=== PATIENT | female | born 1960 | race Caucasian/White ===

== ENCOUNTER 2019-06-23 13:21 | Observation (INO) | payer SELFPAY ==
[~2019-06-23] VITALS: Ht 165.1 cm; Wt 97.5 kg
[~2019-06-23 13:21] MED LIST: ACIPHEX20 MG PO; DYAZIDE 37.5-21 EACH PO; NAPROXEN500 MG PO; VICODIN
--- OUTSIDE RECORDS SUMMARY | 2019-06-23 13:24 | XMS REPORT ---
Author Author [facility] Address Unknown Phone Unavailable Care Team Providers Care [place] [employer] Name Role Phone Unavailable Unavailable Payers Payer Name Policy Type Policy Number Effective Date Expiration Date Problems This patient has no known problems. Allergies, Adverse Reactions, Alerts Allergy Name Allergy Type Status Severity Reaction(s) Onset Date Inactive Date Treating Clinician Comments No Known Allergies DA Active U 2014-02-10 00:00:00 Medications This patient has no known medications. Results Test Description Test Time Test Comments Text Results Atomic Results Result Comments - CT NECK W/CONTRAST 2018-08-18 18:28:00 Name: NICK LOWERY [facility] : 1960 Age/S: 58 / F [address] [place] [address] Unit #: [id number] Loc: [place] [address] Phys: Shruthi Howell MD Acct: [id number] Dis Date: Status: REG CLI PHONE #: [phone] Exam Date: 08/18/2018 174 FAX #: [phone] Reason: THYROID MASS AND POSTERIOR NECK MASS EXAMS: CPT CODE: [id number] CT NECK W/CONTRAST 23130 PROCEDURE: CT NECK WITH CONTRAST INDICATION: THYROID MASS AND POSTERIOR NECK MASS COMPARISON: Thyroid ultrasound 05/02/2018 from [facility] TECHNIQUE: Helical imaging performed skull base through the thoracic inlet following intravenous contrast administration. Multiplanar reconstructions are available in soft tissue algorithm. IV CONTRAST: [address] imaging performed at this location utilizes radiation dose optimization techniques which include one or more of the following: -Automated exposure control -Adjustment of the mA and/or kV according to patient size - Use of iterative reconstruction technique CT Radiation Dose DLP 147.80 mGy-cm FINDINGS: Slight heterogeneous attenuation thyroid with asymmetric enlargement right lobe corresponding to findings at ultrasound. No cervical or superior mediastinal adenopathy by size criteria. The visualized aerodigestive tract is unremarkable. 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 The parotid and submandibular glands are unremarkable. The vasculature is unremarkable. Numerous calcified granulomatous in the visualized upper lung zones. Multilevel cervical spondylosis and facet arthropathy. Enhancing soft tissue lesion inseparable from spinous process C7 estimated 2 cm transverse by 1.4 cm craniocaudal. No gross bone destructive changes within resolution limitations of this exam. No other skeletal abnormality demonstrated. IMPRESSION: 1. Heterogeneous attenuation thyroid with asymmetric enlargement right lobe corresponding to findings at ultrasound. Previous biopsy of right lobe. The reader is referred to results of that study. 2. Negative for regional lymphadenopathy. 3. Enhancing soft tissue lesion inseparable from spinous process C7. Inflammatory and neoplastic lesions are in the differential. Please correlate clinically with regards to history of posterior neck mass. PAGE 1 Signed Report (CONTINUED) Name: NICK LOWERY [facility] : 1960 Age/S: 58 / F [address] [place] [address] Unit #: [id number] Loc: [place] [address] Phys: Shruthi Howell MD Acct: [id number] Dis Date: Status: REG CLI PHONE #: [phone] Exam Date: 08/18/2018 174 FAX #: [phone] Reason: THYROID MASS AND POSTERIOR NECK MASS EXAMS: CPT CODE: [id number] CT NECK W/CONTRAST 79190 <Continued> If indicated, further imaging options would include MRI and image guided percutaneous needle biopsy. SL: [id number] at 1828 Reported and signed by: Heladio Morales M.D. CC: Shruthi Howell MD; Carol Olivares Technologist:Hodan Ellis RT(R)(CT) CTDI: DLP: Trnscb Date/Time: 08/18/2018 (1828) tDEE Orig Print D/T: S: 08/18/2018 (1831) CTDI: DLP: PAGE 2 Signed Report - CT CHEST W/CONTRAST 2018-08-18 18:21:00 Name: NICK LOWERY [facility] : 1960 Age/S: 58 / F [address] [place] [address] Unit #: [id number] Loc: [place] [address] Phys: Shruthi Howell MD Acct: [id number] Dis Date: Status: REG CLI PHONE #: [phone] Exam Date: 08/18/2018 174 FAX #: [phone] Reason: THYROID MASS AND POSTERIOR NECK MASS EXAMS: CPT CODE: [id number] CT CHEST W/CONTRAST 47419 PROCEDURE: CT CHEST WITH CONTRAST INDICATION: THYROID MASS AND POSTERIOR NECK MASS COMPARISON: Thyroid ultrasound 05/05/2018 from [facility] TECHNIQUE: Helical imaging performed apices through the lung bases with multiplanar reconstructions. IV CONTRAST: [address] imaging performed at this location utilizes radiation dose optimization techniques which include one or more of the following: -Automated exposure control -Adjustment of the mA and/or kV according to patient size -Use of iterative reconstruction technique CT Radiation Dose DLP 377.30 mGy-cm FINDINGS: LUNGS AND PLEURA: Scattered calcified granulomata bilateral. No suspicious pulmonary masses. No consolidation. No pleural abnormality. The central airways are patent. MEDIASTINUM: Heterogeneous attenuation thyroid with asymmetric enlargement right lobe corresponding to nodular lesions by ultrasound. No neck base or mediastinal adenopathy. Small calcified left hilar and peribronchial nodes compatible with residua of previous granulomatous disease. The esophagus is unremarkable. HEART: The cardiac chambers are unremarkable. No pericardial effusion. VASCULAR STRUCTURES: Mild atherosclerosis thoracic aorta. No aneurysm. The superior vena cava is unremarkable. UPPER ABDOMEN: The gallbladder is surgically absent. Scattered calcified granulomata within the spleen. The spleen is mildly enlarged estimated 14 cm in length. The visualized upper abdominal viscera are otherwise unremarkable. MUSCULOSKELETAL: The skeleton is intact. IMPRESSION: 1. Heterogeneous attenuation thyroid with asymmetric enlargement right lobe corresponding to findings on prior ultrasound. Previous ultrasound-guided fine-needle aspiration of the right lobe. The reader is referred to results of that study. PAGE 1 Signed Report (CONTINUED) Name: NICK LOWERY [facility] : 1960 Age/S: 58 / F [address] [place] [address] Bl Unit #: [id number] Loc: [place] [address] Phys: Shruthi Howell MD Acct: [id number] Dis Date: Status: REG CLI PHONE #: [phone] Exam Date: 08/18/2018 1742 FAX #: [phone] Reason: THYROID MASS AND POSTERIOR NECK MASS EXAMS: CPT CODE: [id number] CT CHEST W/CONTRAST 90985 <Continued> 2. Residua of previous granulomatous disease. 3. Mild splenomegaly. SL: [id number] at 1821 Reported and signed by: Heladio Morales M.D. CC: Shruthi Howell MD; Carol Olivares Technologist:RT Ziyad(Christofer)(CT) CTDI: DLP: Trnscb Date/Time: 08/18/2018 (1820) NenitaL Orig Print D/T: S: 08/18/2018 (1824) CTDI: DLP: PAGE 2 Signed Report SURGICAL SPECIMENS 2018-07-08 08:18:00 RUN DATE: 07/08/18 [facility] *LIVE* PAGE 1 RUN TIME: 817 Specimen Inquiry RUN USER: INTERFACE PATIENT: NICK LOWERY LOC: [facility] U #: [id number] AGE/SX: 58/F ROOM: RE06/08/18REG DR: Osvaldo Broussard : [birth year] BED: DIS: STATUS: DEP CLI TLOC: SPEC #: [id number] RECD: 06/08/18 STATUS: LIZZYIvonne RE #: [id number] RAFAEL: 06/08/[address]: Gayle Broussard MD ENTERED: 07/07/18 SP TYPE: SURG SPEC OTHR DR: No Primary or Family PhysicianORDERED: LEVEL 4 CODES: [id number] - THYROID GLAND COPIES TO: No Primary [place] [id number] [facility] [address] [place] [address] PROCEDURES: GM LEVEL 4 (Incomplete) TISSUES: 1. THYROID GLAND, NOS - Thyroid gland, right, FNA COMMENTS Cytological assessment of follicular thyroid lesions is imprecise. The precise determination of colloid nodules, follicular adenomas and follicular carcinomas is usually based on architecture in surgical resection specimens. Diagnostic probabilities can be provided from cytologic specimens. Cytology specimens may be classified as "nondiagonostic" or "unsatisfactory" and repeat FNA may be required if clinically indicated. Cytology classified as "benign" may carry a risk for malignancy of 0-3%. Classification as "atypia of undertermined significance" or "follicular lesion of undetermined significance" carries a risk for malignancy of 5-15%. Classification as "folicular neoplasm" or "suspicious for folicular neoplasm" carries a risk for malignancy of 15-30%. Classification as "suspicious for malignancy" caries a risk for malignancy of 60-75%. A "malignant" classification carries a risk for malignancy of 97-99%. ([facility] for reporting thyroid cytopathology, 2010). 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 ([facility] [employer] [facility] for Reporting Thyroid Cytopathology, 2010). CONTINUED ON NEXT PAGE --------RUN DATE: 07/08/18 [facility] *LIVE* PAGE 2 RUN TIME: 817 Specimen Inquiry RUN USER: INTERFACE SPEC #: [id number] PATIENT: NICK LOWERY #[id number] (Continued) GROSS AND MICROSCOPIC INTRAOPERATIVE CONSULT <MR>: Thyroid, right, nodule, fine needle aspirate, 4 separate specimens received at the same time: Adequate for cytologic evaluation. GROSS EXAMINATION: Received in the fresh state are 8 slides representing 4 fine aspirates for evaluation for adequacy. They're determined to be adequate for cytologic evaluation and these slides as well as residual material will be submitted for permanent microscopic examination. MICROSCOPIC EXAMINATION: The direct smears show thyroid epithelial cells with Hurthle cell change and some multinucleated giant cells. Lymphoid cells are occasionally identified. The cell block shows thyroid epithelial cells with Hurthle cell change and some lymphoid cells with amorphous material. The changes represent a follicular lesion of undetermined significance with Hurthle cell change. Brian's thyroiditis cannot be excluded. Clinical correlation is necessary. POST-OP DIAGNOSIS Mild suspicion PRE-OP DIAGNOSIS Thyroid nodule TR3 REVIEWED BY: DENA ------- Signed SIGNATURE ON FILE Cassie Poole MD 07/08/18 0818 END OF REPORT - USG NDL PLACEMENT (Bxg/Asp) 2018-06-08 16:12:00 Name: NICK LOWERY [facility] : 1960 Age/S: 58 / F [address] [place] [address] Unit #: [id number] Loc: [place] [address] Phys: Gayle Broussard MD Acct: [id number] Dis Date: Status: REG CLI PHONE #: [phone] Exam Date: 06/08/2018 1410 FAX #: [phone] Reason: E04.2, NONTOXIC MULTINODULAR GOITER. EXAMS: CPT CODE: [id number] USG NDL PLACEMENT (Bxg/Asp) 51341 PROCEDURE: Ultrasound guided biopsy of thyroid nodule located within the right lobe. INDICATION: Multinodular goiter, right thyroid nodule. COMPARISON: Ultrasound May 05, 2018 PROCEDURE: Ultrasound was used to evaluate the thyroid gland for potential biopsy sites. Preliminary ultrasound demonstrates hyperechoic lobular 2.7 x 2.5 cm nodule. The procedure, risks, benefits and alternatives were discussed. Informed cons ent was obtained. Timeout was performed prior to the procedure. The skin overlying the thyroid gland was sterilely prepped and draped. 1% lidocaine was used for local anesthesia. Using ultrasound guidance, a 25-gauge needle was advanced into the thyroid nodule and fine needle aspiration biopsy was performed. A total of 4 biopsies were performed. Ultrasound images were obtained to document needle positions for permanent recording. The samples were immediately prepared for pathology evaluation. There were no evident complications and the patient had no complaints. Pressure was applied at the puncture site with adequate hemostasis. Final pathology results are pending. IMPRESSION: 1. Technically successful biopsy of right thyroid nodule using ultrasound guidance. at 1612 Reported and signed by: Ana Wilson D.O. CC: Gayle Broussard MD Technologist: Isaura Issa Trnohb Date/Time: 06/08/2018 (1612) [email or web address] Orig Print D/T: S: 06/08/2018 (2008) Probe: PAGE 1 Signed Report
[2019-06-23] MEDS ORDERED: ASPIRIN 81 MG CHEW TAB PO ONE (13:45)
[2019-06-23] MEDS ORDERED: NITROGLYCERIN 2% OINT 1 GM PKT TOP ONE (14:15)
[2019-06-23 14:28] LABS: BASOPHILS % 0.8 % (0.0-1.0); EOSINOPHILS # (AUTO) 0.2 (0.0-0.4); EOSINOPHILS % 3.8 % (0.0-6.0); HEMATOCRIT 39.6 % (34.2-44.1); HEMOGLOBIN 13.2 g/dL (12.0-16.0); LYMPHOCYTES # (AUTO) 1.8 (1.0-3.2); LYMPHOCYTES % 37.2 % (18.0-39.1); MEAN CORPUSCULAR HEMOGLOBIN 31.1 pg (28-32); MEAN CORPUSCULAR HGB CONC 33.3 g/dL (31-35); MEAN CORPUSCULAR VOLUME 93.2 fL (81-99); MONOCYTES # (AUTO) 0.5 (0.2-0.8); MONOCYTES % 9.9 % (4.4-11.3); NEUTROPHILS # (AUTO) 2.4 (2.1-6.9); NEUTROPHILS % 47.9 % (38.7-80.0); PLATELET COUNT 246 x10e3/uL (140-360); RED BLOOD COUNT 4.25 x10e6/uL (3.6-5.1); RED CELL DISTRIBUTION WIDTH 12.6 % (11.7-14.4)
[2019-06-23] MEDS ORDERED: FAMOTIDINE 20 MG/2 ML VIAL IV SCH (14:30)
[2019-06-23] MEDS ORDERED: NITROGLYCERIN 0.4 MG SUBL SL PRN (14:30)
[2019-06-23] MEDS ORDERED: MORPHINE SULFATE 2 MG/ML SYR 1ML IV PRN (14:30)
[2019-06-23 14:32] LABS: INR 0.88; PROTHROMBIN TIME 12.4 seconds (11.9-14.5)
[2019-06-23 14:33] LABS: PARTIAL THROMBOPLASTIN TIME 29.2 seconds (23.8-35.5)
[2019-06-23 14:42] LABS: ALANINE AMINOTRANSFERASE 22 IU/L (0-55); ALBUMIN 3.9 g/dL (3.5-5.0); ALBUMIN/GLOBULIN RATIO 1.2 (0.8-2.0); ALKALINE PHOSPHATASE 79 IU/L (40-150); ANION GAP 12.9 mmol/L (8-16); BLOOD UREA NITROGEN 12 mg/dL (7-26); BUN/CREATININE RATIO 17 (6-25); CALCIUM 9.1 mg/dL (8.4-10.2); CARBON DIOXIDE 23 mmol/L (22-29); CHLORIDE 106 mmol/L (98-107); CREATINE KINASE 57 IU/L (29-168); CREATININE, SERUM 0.71 mg/dL (0.57-1.11); EST GLOMERULAR FILTRATION RATE > 60 ML/MIN (60-); GLUCOSE 101 mg/dL (74-118); POTASSIUM 3.9 mmol/L (3.5-5.1); SODIUM 138 mmol/L (136-145)
[2019-06-23] MEDS: METOPROLOL TARTRATE 25 MG TAB PO SCH ×2 (15:32→21:30)
--- NOTE | 2019-06-23 15:35 | Diagnostic Imaging Report ---
TECHNIQUE: Frontal view of the chest. INDICATION: 59-year-old woman with chest pain. COMPARISON: Chest radiograph 02/07/2008. FINDINGS: LINES/TUBES: None. LUNGS: The lungs are well inflated. No consolidation or pulmonary edema. Unchanged scattered subcentimeter calcified granulomas. PLEURA: No pneumothorax or significant pleural effusion. HEART AND MEDIASTINUM: The cardiomediastinal silhouette is within normal limits. SOFT TISSUES AND BONES: Unremarkable. IMPRESSION: No acute cardiopulmonary abnormalities. Signed by: Laura Montanez MD on 06/23/2019 3:33 PM
[2019-06-23] MEDS ORDERED: HYDRALAZINE HCL 20 MG/ML VIAL IV PRN (18:30)
[2019-06-23] MEDS ORDERED: ACETAMINOPHEN 325 MG TAB PO PRN (18:30)
[2019-06-23] MEDS: NITROGLYCERIN 2% OINT 1 GM PKT TOP SCH ×2 (18:57→23:59)
[2019-06-23] MEDS: NICOTINE 7 MG PATCH TOP SCH (19:37)
[2019-06-23] MEDS: ONDANSETRON HCL INJ 2MG/ML 2ML 2 MG/ML VIAL IV PRN (19:57)
[2019-06-23] MEDS ORDERED: MELATONIN 5 MG TABLET PO PRN (21:00)
[2019-06-23 22:00] VITALS: BP 149/79
--- NOTE | 2019-06-23 22:00 | NUR ---
patient received to room 111 via wheelchair at this time. vss. no c/o chest pain noted at this time. admit assessment/history complete. friend noted at bedside. patient instructed to call for assistance when needed.
[2019-06-23 22:43] VITALS: BP 149/79
[2019-06-23] MEDS ORDERED: NEXIUM40 MG PO (23:22)
[2019-06-23] MEDS ORDERED: LISINOPRIL10 MG PO (23:22)
[2019-06-23] MEDS ORDERED: PROBIOTIC & AC1 EACH PO (23:23)
[2019-06-23] MEDS ORDERED: DICYCLOMINE HCL20 MG PO (23:26)
[2019-06-23] MEDS ORDERED: ONDANSETRON2 MG/1 ML PO (23:29)
[2019-06-24 00:37] VITALS: BP 155/78
[2019-06-24 04:44] VITALS: BP 148/67
[2019-06-24] MEDS: NITROGLYCERIN 2% OINT 1 GM PKT TOP SCH ×2 (05:54→11:57)
[2019-06-24 06:12] LABS: BASOPHILS % 0.5 % (0.0-1.0); EOSINOPHILS # (AUTO) 0.3 (0.0-0.4); EOSINOPHILS % 3.9 % (0.0-6.0); HEMATOCRIT 39.1 % (34.2-44.1); HEMOGLOBIN 13.1 g/dL (12.0-16.0); LYMPHOCYTES # (AUTO) 1.8 (1.0-3.2); LYMPHOCYTES % 28.6 % (18.0-39.1); MEAN CORPUSCULAR HGB CONC 33.5 g/dL (31-35); MEAN CORPUSCULAR VOLUME 92.7 fL (81-99); MONOCYTES # (AUTO) 0.6 (0.2-0.8); MONOCYTES % 9.7 % (4.4-11.3); NEUTROPHILS # (AUTO) 3.6 (2.1-6.9); PLATELET COUNT 242 x10e3/uL (140-360); RED BLOOD COUNT 4.22 x10e6/uL (3.6-5.1); RED CELL DISTRIBUTION WIDTH 12.6 % (11.7-14.4)
[2019-06-24 06:40] LABS: CREATINE KINASE MB 1.7 ng/mL (0-5.0)
[2019-06-24 06:58] LABS: ALANINE AMINOTRANSFERASE 20 IU/L (0-55); ALBUMIN 3.5 g/dL (3.5-5.0); ALBUMIN/GLOBULIN RATIO 1.2 (0.8-2.0); ALKALINE PHOSPHATASE 73 IU/L (40-150); ANION GAP 12.7 mmol/L (8-16); BLOOD UREA NITROGEN 14 mg/dL (7-26); BUN/CREATININE RATIO 18 (6-25); CALCIUM 9.5 mg/dL (8.4-10.2); CARBON DIOXIDE 24 mmol/L (22-29); CHLORIDE 106 mmol/L (98-107); CHOL/HDL RATIO 3.8 (3.0-3.6); CHOLESTEROL 184 MD/DL (0-199); CREATININE, SERUM 0.78 mg/dL (0.57-1.11); EST GLOMERULAR FILTRATION RATE > 60 ML/MIN (60-); GLUCOSE 99 mg/dL (74-118); HDL CHOLESTEROL 48 MG/DL (40-60); LDL CHOLESTEROL 112 MG/DL (60-130); POTASSIUM 3.7 mmol/L (3.5-5.1); SODIUM 139 mmol/L (136-145); TRIGLYCERIDES 121 MG/DL (0-149)
--- NOTE | 2019-06-24 07:00 | NUR ---
RECEIVED PATIENT AWAKE IN BED NO S/S OF DISTRESS. BED LOW, WHEELS LOCKED, SIDE RAILS X2. CALL LIGHT IN REACH WILL CONTINUE TO MONITOR PATIENT.
[2019-06-24] MEDS ORDERED: LORAZEPAM INJ 2 MG/ML VIAL IV PRN (07:15)
[2019-06-24] MEDS ORDERED: DICYCLOMINE HCL 20 MG TAB PO PRN (07:15)
[2019-06-24 07:17] LABS: THYROID STIMULATING HORMONE 3.876 uIU/mL (0.350-4.940)
[2019-06-24] MEDS ORDERED: ASPIRIN EC81 MG PO (07:22)
[2019-06-24] MEDS ORDERED: FAMOTIDINE 20 MG TAB PO SCH (07:30)
[2019-06-24 08:36] VITALS: BP 173/80
[2019-06-24 08:51] VITALS: BP 173/80
[2019-06-24] MEDS ORDERED: LACTOBACILLUS ACIDOPHILUS CAPSULE PO SCH (09:00)
[2019-06-24] MEDS ORDERED: [UNRECOGNIZED DRUG - OTHER] PO SCH (09:00)
[2019-06-24] MEDS ORDERED: TRIAMTERENE/HCTZ 37.5-25 MG TAB PO SCH (09:00)
[2019-06-24] MEDS ORDERED: LISINOPRIL 20 MG TAB PO SCH (09:00)
[2019-06-24] MEDS ORDERED: ASPIRIN 81 MG ENTERIC COATED PO SCH (09:00)
[2019-06-24] MEDS: METOPROLOL TARTRATE 25 MG TAB PO SCH (09:07)
[2019-06-24] MEDS: NICOTINE 7 MG PATCH TOP SCH (09:07)
--- NOTE | 2019-06-24 09:31 | Diagnostic Imaging Report ---
EXAM: CT Chest WITH contrast- Pulmonary Embolism Protocol INDICATION: Chest pain, shortness of breath, history of prior pulmonary embolism COMPARISON: Chest are graft 06/23/2019 TECHNIQUE: Chest was scanned utilizing a multidetector helical scanner from the lung apex through the level of the diaphragm after administration of IV contrast. Thin section reconstructions were obtained with special concentration on the pulmonary arteries. Coronal and sagittal reformations were obtained. Pulmonary embolism protocol was performed. IV CONTRAST: 100 cc of Isovue 370 RADIATION DOSE: Total DLP: 567 mGy*cm Dose modulation, iterative reconstruction, and/or weight based adjustment of the mA/kV was utilized to reduce the radiation dose to as low as reasonably achievable. COMPLICATIONS: None FINDINGS: LINES/ TUBES: None. PULMONARY ARTERIES: No filling defect is identified within the pulmonary arteries to the segmental level. The subsegmental pulmonary arteries are not well opacified. Main pulmonary artery measures 2.6 cm in diameter. No right heart strain. LUNGS AND AIRWAYS: The central airways are patent. No focal consolidation or pulmonary edema. Scattered subcentimeter calcified granulomas throughout both lungs. PLEURA: The pleural spaces are clear. HEART AND MEDIASTINUM: 1.7 cm hypodense nodule in the right thyroid lobe. The left thyroid nodule. No supraclavicular, mediastinal, , or axillary lymphadenopathy. Calcified 1 cm left hilar lymph node and 5 mm subcarinal calcified lymph node. The heart is not enlarged. No pericardial effusion. No substantial atherosclerotic calcifications. UPPER ABDOMEN: Status post cholecystectomy. No acute findings. BONES: No acute osseous injury. No suspicious lytic or blastic lesions. SOFT TISSUES: Unremarkable. IMPRESSION: No pulmonary embolism. No pneumonia or pulmonary edema. Scattered calcified granulomas and calcified left hilar and subcarinal lymph node, compatible with prior granulomatous disease. 1.7 cm hypodense right thyroid nodule. Recommend further evaluation with dedicated thyroid ultrasound. Signed by: Harper Nogueira MD on 06/24/2019 9:28 AM
--- NOTE | 2019-06-24 10:43 | NUR ---
GAVE PACKET OF INFORMATION WITH [facility]ITY [employer] FOR ASSISTANCE WITH LOW TO NO INCOME TO PATIENT. RESOURCES THAT PATIENT MAY BE ABLE TO FOLLOW UP UPON DISCHARGE. PT EDUCATED ON EACH RESOURCE AND UNDERSTANDING HOW TO FOLLOW UP TO SEE IF QUALIFIED FOR EACH RESOURCE.
[2019-06-24] MEDS ORDERED: IOPAMIDOL 370 MG/ML 200 ML INFUS..BTL INJ ONE (10:44)
[2019-06-24] MEDS ORDERED: SODIUM CHLORIDE 0.9% 50ML 50 ML ONE (10:44)
[2019-06-24] MEDS: ONDANSETRON HCL INJ 2MG/ML 2ML 2 MG/ML VIAL IV PRN (12:06)
[2019-06-24 12:46] VITALS: BP 154/83
--- NOTE | 2019-06-24 13:48 | NUR ---
ECHO RESULTS GIVEN TO JESSICA WASTE PICKER. NEW ORDER TO DISCHARGE PATIENT. NEW ORDERS IMPLEMENTED.
--- NOTE | 2019-06-24 14:10 | NUR ---
REMOVED PATIENTS IV. CATHETER TIP INTACT AND PRESSURE DRESSING APPLIED.
--- NOTE | 2019-06-24 14:20 | NUR ---
PATIENT DISCHARGED FROM FACILITY. PATIENT GATHERED ALL PERSONAL BELONGINGS, DISCHARGE INSTRUCTIONS AND FOLLOW UP INFORMATION GIVEN TO PATIENT. PATIENT LEFT UNIT IN WHEELCHAIR AND WENT HOME VIA PRIVATE AUTO. NO S/S OF DISTRESS WHEN LEAVING FACILITY.
--- NOTE | 2019-06-25 03:43 | Discharge Summary ---
ADMISSION DIAGNOSES: Chest pain, history of pulmonary embolism, hypertension, gastroesophageal reflux disease, irritable bowel syndrome, obesity with a BMI of 35.8, alcohol and tobacco abuse. DISCHARGE DIAGNOSES: Chest pain, history of pulmonary embolism, hypertension, gastroesophageal reflux disease, irritable bowel syndrome, obesity with a BMI of 35.8, alcohol and tobacco abuse, rule out ACS, plus rule out pulmonary embolism. HISTORY: Arthritis, hypertension, IBS, GERD, and PE around 2005. SURGICAL HISTORY: Tonsillectomy, appendectomy, bilateral breast lumpectomy, and cholecystectomy. FAMILY HISTORY: The patient's mom and uncle had cancer. The patient's maternal grandmother had a stroke. SOCIAL HISTORY: The patient admits to drinking about 3 or 4 mixed vodka drinks a day and admits to smoking about a quarter to a half pack of cigarettes a day. 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 The pain was achy and intermittent. She had associated nausea, but denies vomiting, diaphoresis, dizziness, abdominal pain, and sick contacts. On admission, troponins were negative x3. Chest x-ray was negative. Echo showed an EF of 55% to 60%. Lipid panel and TSH were within normal limits. Due to a history of PE, a CTA of the chest was done, which was also negative. EKG showed normal sinus at 85. After all studies were negative, the patient was discharged home with new prescription for aspirin. The patient will follow up with primary care in 1 to 2 weeks. The patient understands discharge instructions and agrees to plan. Dictated by Susanne Brown NP MD ROMAIN Ragland/MODL /[id number]
== END 2019-06-24 14:20 | disposition home or self-care (01) ==
LOC: ER 13:21 → ERHOLD 14:20 → MED/SURG 22:03
PROVIDERS: ADMIT Internal Medicine; ATTEND Internal Medicine
DX: R07.9 Chest pain, unspecified (principal); I26.99 Other pulmonary embolism without acute cor pulmonale; K58.9 Irritable bowel syndrome, unspecified; E66.9 Obesity, unspecified; Z68.35 Body mass index [BMI] 35.0-35.9, adult; F10.10 Alcohol abuse, uncomplicated; F17.200 Nicotine dependence, unspecified, uncomplicated
CPT/HCPCS: 36415 ×2; 71045; 71260; 80053 ×2; 80061; 82550 ×2; 82553 ×2; 83036; 83880; 84443; 84484 ×2; 85025 ×2; 85610; 85730; 93005; 93306; 99284; G0378 ×2; J2270; J2405 ×2; Q9967

== ENCOUNTER 2020-10-17 17:35 | Emergency (ER) | payer OTHER ==
[~2020-10-17] VITALS: Ht 165.1 cm; Wt 97.5 kg
[~2020-10-17 17:35] MED LIST changes: +ASPIRIN EC81 MG PO; +DICYCLOMINE HCL20 MG PO; +LISINOPRIL10 MG PO; +NEXIUM40 MG PO; +ONDANSETRON2 MG/1 ML PO; +PROBIOTIC & AC1 EACH PO
== END 2020-10-17 19:51 | disposition left against medical advice (07) ==
LOC: ER 18:18
DX: R05 Cough (principal); R06.00 Dyspnea, unspecified

== ENCOUNTER 2021-05-09 14:33 | Emergency (ER) | payer SELFPAY ==
[~2021-05-09] VITALS: Ht 165.1 cm; Wt 97.5 kg
[2021-05-09 15:03] LABS: BASOPHILS # (AUTO) 0.1 (0.0-0.1); BASOPHILS % 0.8 % (0.0-1.0); EOSINOPHILS # (AUTO) 0.1 (0.0-0.4); HEMATOCRIT 41.1 % (34.2-44.1); HEMOGLOBIN 13.9 g/dL (12.0-16.0); LYMPHOCYTES # (AUTO) 2.2 (1.0-3.2); LYMPHOCYTES % 35.5 % (18.0-39.1); MEAN CORPUSCULAR HEMOGLOBIN 33.1 pg (28-32); MEAN CORPUSCULAR HGB CONC 33.8 g/dL (31-35); MEAN CORPUSCULAR VOLUME 97.9 fL (81-99); MONOCYTES # (AUTO) 0.5 (0.2-0.8); MONOCYTES % 8.7 % (4.4-11.3); NEUTROPHILS # (AUTO) 3.2 (2.1-6.9); NEUTROPHILS % 52.5 % (38.7-80.0); PLATELET COUNT 271 x10e3/uL (140-360); RED CELL DISTRIBUTION WIDTH 12.5 % (11.7-14.4)
[2021-05-09 15:24] LABS: ALBUMIN 3.7 g/dL (3.5-5.0); ALBUMIN/GLOBULIN RATIO 1.1 (0.8-2.0); ANION GAP 12.3 mmol/L (8-16); CALCIUM 9.5 mg/dL (8.4-10.2); CLARITY,URINE CLEAR (CLEAR); COLOR,URINE YELLOW (YELLOW); CREATININE, SERUM 0.68 mg/dL (0.57-1.11); KETONES,URINE NEGATIVE (NEGATIVE); LEUKOCYTE ESTERASE ,URINE NEGATIVE (NEGATIVE); NITRITE,URINE NEGATIVE (NEGATIVE); POTASSIUM 4.3 mmol/L (3.5-5.1); PROTEIN,URINE DIPSTICK NEGATIVE (NEGATIVE); URINE UROBILINOGEN 0.2 mg/dL (0.2 - 1)
[2021-05-09 15:27] LABS: AMPHETAMINES SCREEN,URINE NEGATIVE (NEGATIVE); BENZODIAZEPINES SCREEN,URINE NEGATIVE (NEGATIVE); PHENCYCLIDINE SCREEN,URINE NEGATIVE (NEGATIVE)
[2021-05-09 15:31] LABS: CREATINE KINASE MB 3.4 ng/mL (0-5.0)
[2021-05-09 15:36] LABS: AMORPHOUS SEDIMENT,URINE FEW (FEW); BACTERIA,URINE RARE /HPF; EPITHELIAL CELLS,URINE FEW /LPF
== END 2021-05-09 16:20 | disposition home or self-care (01) ==
LOC: ER 14:35
DX: F41.9 Anxiety disorder, unspecified (principal); R94.31 Abnormal electrocardiogram [ECG] [EKG]; I10 Essential (primary) hypertension; K21.9 Gastro-esophageal reflux disease without esophagitis; Z20.822 Contact with and (suspected) exposure to COVID-19
CPT/HCPCS: 36415; 70450; 71045; 80053; 80307; 81001; 82550; 82553; 84443; 84484; 85025; 93005; 99284; U0002

== ENCOUNTER 2021-07-24 15:58 | Emergency (ER) | payer OTHER ==
[~2021-07-24] VITALS: Ht 165.1 cm; Wt 97.5 kg
[2021-07-24] MEDS ORDERED: CYCLOBENZAPRINE HCL 10 MG TAB PO ONE (17:30)
== END 2021-07-24 18:40 | disposition home or self-care (01) ==
LOC: ER 16:31
DX: S93.602A Unspecified sprain of left foot, initial encounter (principal); S93.402A Sprain of unspecified ligament of left ankle, initial encounter; I10 Essential (primary) hypertension; K21.9 Gastro-esophageal reflux disease without esophagitis; F17.200 Nicotine dependence, unspecified, uncomplicated; X50.1XXA Overexertion from prolonged static or awkward postures, initial encounter; Y92.002 Bathroom of unspecified non-institutional (private) residence as the place of occurrence of the external cause; Y99.8 Other external cause status; Z79.82 Long term (current) use of aspirin; Z79.899 Other long term (current) drug therapy
CPT/HCPCS: 99284

== ENCOUNTER 2024-05-08 00:09 | Emergency (ER) | payer OTHER ==
[~2024-05-08] VITALS: Ht 165.1 cm; Wt 97.1 kg
[2024-05-08 00:19] VITALS: PULSE 93; RESP 18; TEMP 98.1
[2024-05-08] MEDS: ACETAMINOPHEN 325 MG TAB PO ONE (01:38)
[2024-05-08 02:30] VITALS: BP 188/100; PULSE 92; RESP 18; TEMP 98; O2SAT 96
== END 2024-05-08 02:30 | disposition home or self-care (01) ==
LOC: FSED 00:44
DX: M25.521 Pain in right elbow (principal); M25.551 Pain in right hip; M25.562 Pain in left knee; M25.561 Pain in right knee; W01.0XXA Fall on same level from slipping, tripping and stumbling without subsequent striking against object, initial encounter; Y93.01 Activity, walking, marching and hiking; Y92.89 Other specified places as the place of occurrence of the external cause; I10 Essential (primary) hypertension; K21.9 Gastro-esophageal reflux disease without esophagitis; F41.9 Anxiety disorder, unspecified; F32.A Depression, unspecified; Z87.19 Personal history of other diseases of the digestive system
CPT/HCPCS: 99283

== ENCOUNTER 2024-05-22 18:39 | Emergency (ER) | payer OTHER ==
[~2024-05-22] VITALS: Ht 165.1 cm; Wt 98.0 kg
[2024-05-22 19:01] VITALS: PULSE 97; RESP 18; TEMP 98.6
[2024-05-22] MEDS: KETOROLAC TROMETHAMINE 60 MG/2 ML VIAL IM STA (20:06)
[2024-05-22] MEDS ORDERED: ACETAMINOPHEN-1 EAC4 PO (20:15)
[2024-05-22] MEDS ORDERED: MACROBID 100 M100 MG PO (20:18)
[2024-05-22 20:25] VITALS: BP 144/76; PULSE 92; RESP 18; TEMP 98.6; O2SAT 97
== END 2024-05-22 20:25 | disposition home or self-care (01) ==
LOC: FSED 18:44
DX: M54.50 Low back pain, unspecified (principal); N39.0 Urinary tract infection, site not specified; I10 Essential (primary) hypertension; F41.9 Anxiety disorder, unspecified; F32.A Depression, unspecified; K21.9 Gastro-esophageal reflux disease without esophagitis; Z87.19 Personal history of other diseases of the digestive system; F17.210 Nicotine dependence, cigarettes, uncomplicated
CPT/HCPCS: 81003; 96372; 99282; J1885

== ENCOUNTER 2024-07-01 15:48 | Emergency (ER) | payer SELFPAY ==
[~2024-07-01 15:48] MED LIST changes: +ACETAMINOPHEN-1 EAC4 PO; +MACROBID 100 M100 MG PO
[2024-07-01 15:50] VITALS: PULSE 102; RESP 18; TEMP 97.7
[2024-07-01] MEDS: ALBUTEROL 90 MCG/ACT INHALER INH PRN (16:42)
[2024-07-01] MEDS ORDERED: ALBUTEROL0.63 MG/3 NEB (17:22)
[2024-07-01] MEDS ORDERED: ZITHROMAX250 MG PO (17:23)
[2024-07-01] MEDS: AZITHROMYCIN 250 MG TAB PO ONE (18:03)
[2024-07-01 18:14] VITALS: BP 189/93; PULSE 99; RESP 20; TEMP 97.9; O2SAT 94
== END 2024-07-01 18:08 | disposition home or self-care (01) ==
LOC: FSED 15:54
DX: R05.9 Cough, unspecified (principal); J40 Bronchitis, not specified as acute or chronic; I10 Essential (primary) hypertension; K21.9 Gastro-esophageal reflux disease without esophagitis; F41.9 Anxiety disorder, unspecified; F32.A Depression, unspecified; Z11.52 Encounter for screening for COVID-19
CPT/HCPCS: 0223U; 71046; 83518 ×2; 87400; 99284